=== PATIENT | male | born 1985 | race American Indian/Alaskan Native ===

== ENCOUNTER 2018-03-31 12:59 | Emergency (ER) | payer SELFPAY ==
[2018-03-31 13:09] VITALS: BP 153/86
--- NOTE | 2018-03-31 13:33 | Emergency Department Report ---
Blank Doc - Documentation Documentation: 32 y/o c/o of right rib and flank pain worse with breathing and moving. Denies abdominal symptoms. no fever or chills. no productive cough. C/o dyspnea Plan CXR
--- NOTE | 2018-03-31 14:39 | XRay Report ---
XRAY CHEST TWO VIEWS: 03/31/18 13:49 CLINICAL: Cough and flank pain. COMPARISON: None FINDINGS: Normal heart and pulmonary vasculature. The lungs are normally expanded and clear. No airspace disease or pleural effusion. The bones and soft tissues are unremarkable. The upper abdomen is unremarkable. IMPRESSION: Normal chest.
--- NOTE | 2018-03-31 14:56 | Emergency Department Report ---
HPI - General Chief Complaint: Abdominal Pain Time Seen by Provider: 03/31/18 13:31 - HPI HPI: This is a 32-year-old male with no problem history who presents to ED complaining of right-sided flank/lateral chest pain for the past 2 days. Patient denies dysuria, nausea vomiting, abdominal pain. He denies fevers/chills/nausea or vomiting, penile discharge. Patient states he is not sure if he injured it. He states the pain is worsened with movement right side. ED Past Medical Hx - Past Medical History Previous Medical History?: No - Surgical History Past Surgical History?: No - Social History Smoking Status: Current Every Day Smoker Substance Use Type: None - Medications Home Medications: Home Medications Medication Instructions Recorded Confirmed Last Taken Type Cyclobenzaprine [Flexeril 10 MG 10 mg PO QHS #20 tablet 03/31/18 Unknown Rx TAB] Ibuprofen [Motrin 800 MG tab] 800 mg PO TID #30 tablet 03/31/18 Unknown Rx ED Review of Systems ROS: Stated complaint: SIDE PAIN/DENNY Other details as noted in HPI Comment: All other systems reviewed and negative Physical Exam - Physical Exam Vital Signs: Vital Signs 03/31/18 13:07 Temperature 97.9 F Pulse Rate 69 Respiratory 16 Rate Blood Pressure 153/86 O2 Sat by Pulse 98 Oximetry Physical Exam: GENERAL: Alert and oriented x3, no apparent distress, Normal Gait, atraumatic. ABDOMEN: No organomegaly was noted,Positive bowel sounds, soft, and non- distended. Nontender to palpation on all Quadrants, NO CVA tenderness. BACK: Full range of motion, no spinal tenderness, nontender to palpation. EXTREMITIES/MUSCULOSKELETAL: No cyanosis, clubbing, rash, lesions or edema. Full ROM bilaterally. UE/LE Pulses 2+ bilaterally. PSYCHIATRIC: Mood is congruent with affect, denies suicidal or homicidal ideations. SKIN: Warm and dry, No lesions, No ulceration or induration present. ED Course Vital Signs 03/31/18 13:07 Temperature 97.9 F Pulse Rate 69 Respiratory 16 Rate Blood Pressure 153/86 O2 Sat by Pulse 98 Oximetry ED Medical Decision Making - Radiology Data Radiology results: report reviewed, image reviewed No acute findings. - Medical Decision Making 32-year-old male presents with myalgia. Patient is in no acute distress. This patient to follow up with primary care physician. Discuss if worsening symptoms return to ED immediately. Critical care attestation.: If time is entered above; I have spent that time in minutes in the direct care of this critically ill patient, excluding procedure time. ED Disposition Clinical Impression: Myalgia Disposition: TO HOME OR SELFCARE Is pt being admited?: No Does the pt Need Aspirin: No Condition: Stable Instructions: Musculoskeletal Pain (ED), Flank Pain (ED), Heat Pack Application (ED) Additional Instructions: Make sure to follow up with the primary care physician as discussed. Take all your medications as you've been prescribed. If you have any worsening symptoms or develop new symptoms please return to ED immediately. Prescriptions: Cyclobenzaprine [Flexeril 10 MG TAB] 10 mg PO QHS #20 tablet Ibuprofen [Motrin 800 MG tab] 800 mg PO TID #30 tablet Referrals: PRIMARY CAREMD [Primary Care Provider] - 3-5 Days SANGEETA BARRIENTOS MD [Referring] - 3-[address] [facility] [Outside] - 3-[address] [facility] [Outside] - 3-5 Days Forms: Accompanied Note, Work/School Release Form(ED) Time of Disposition: 15:06
[2018-03-31] MEDS ORDERED: FLEXERIL PO ONE (14:57)
[2018-03-31] MEDS ORDERED: IBUPROFEN PO ONE (14:57)
== END 2018-03-31 15:28 | disposition home or self-care (01) ==
LOC: ED 12:59
DX: M79.10 Myalgia, unspecified site (principal)
CPT/HCPCS: 71046; 99283